=== PATIENT | female | born 1980 | race African-American/Black ===

== ENCOUNTER 2019-03-25 01:47 | Observation (INO) ==
[2019-03-25 04:15] LABS: Apearance,Urine CLEAR (Clear); Bacteria,Urine Occasional /HPF (Few); Bilirubin,Urine Negative (Negative); Blood, Urine Large mg/dL (Negative); Glucose,Urine (UA) Negative (Negative); Ketones,Urine 5 mg/dL (Negative); Mucus,Urine Many /LPF (Occasional); Nitrite,Urine Negative (Negative); Protein,Urine 30 MG/DL; RBC,Urine 107 /HPF (0-4); Squamous Epithelial Cell,Urine Occasional /HPF (0-10); Urine Color Yellow (Yellow); Urine Specific Gravity 1.027 (1.001-1.035); WBC,Urine <1 /HPF (0-6)
[2019-03-25] MEDS ORDERED: PIPERACILLIN/TAZOBACTAM 3,375 MG in SODIUM CHLORIDE 0.9% 100 ML IV STA (04:42)
[2019-03-25 05:36] LABS: Basophils # 0.1 10*3/uL (0.0-0.2); Basophils % 0.6 % (0.0-0.8); Eosinophils # 0.3 10*3/uL (0.0-0.87); Eosinophils % 2.6 % (0.00-10.9); Hematocrit 38.8 VOL% (35.7-47.0); Hemoglobin 12.7 GM/DL (12.0-16.0); Immature Granulocytes % 0.3 %; Immature Granulocytes Absolute 0.03 #; Lymphocytes # 4.3 10*3/uL (1.4-4.0); Lymphocytes % 41.7 % (21.3-54.2); Mean Corpuscular HGB Conc 32.7 GM/DL (32-36); Mean Corpuscular Volume 84.2 FL (87-102); Mean Platelet Volume 10.5 FL (9.6-12.0); Monocytes % 6.9 % (1.7-12.7); Neutrophils % 47.9 % (38.7-73.9); Platelet Count 284 T/CUMM (130-400); Red Blood Count 4.61 MC/CUMM (3.8-5.5); Red Cell Distribution Width 13.3 % (9.3-17.3); White Blood Count 10.4 T/CUMM (4-12)
[2019-03-25 05:54] LABS: Calcium 8.8 MG/DL (8.5-10.1); Osmolality,Calculated 275.4 MOS/KG (273-304)
[2019-03-25] MEDS ORDERED: ACETAMINOPHEN 325 MG TABLET PO PRN (05:59)
[2019-03-25] MEDS ORDERED: HYDROmorphone 2 MG/1 ML VIAL IV PRN (05:59)
[2019-03-25] MEDS ORDERED: ONDANSETRON 4 MG/2 ML VIAL IV PRN (05:59)
[2019-03-25] MEDS: SODIUM CHLORIDE 0.9% 1,000 ML IV SCH ×2 (07:25→20:51)
[2019-03-25] MEDS: ENOXAPARIN 40 MG/0.4 ML SYRINGE SUBCUT SCH (09:17)
[2019-03-25] MEDS ORDERED: BUPIVACAINE MPF 0.25% 30 ML VIAL ONE (10:22)
[2019-03-25] MEDS ORDERED: LIDOCAINE 1% 20 ML VIAL ONE (10:22)
[2019-03-25] MEDS ORDERED: fentaNYL 100 MCG/2 ML VIAL ONE (10:44)
[2019-03-25] MEDS ORDERED: DEXAMETHASONE 4 MG/1 ML VIAL ONE (10:44)
[2019-03-25] MEDS ORDERED: LIDOCAINE 2% 5 ML VIAL ONE (10:44)
[2019-03-25] MEDS ORDERED: ONDANSETRON 4 MG/2 ML VIAL ONE (10:44)
[2019-03-25] MEDS ORDERED: KETOROLAC 30 MG/1 ML VIAL ONE (10:44)
[2019-03-25] MEDS ORDERED: propofoL 200 MG/20 ML VIAL IV ONE (10:44)
[2019-03-25] MEDS ORDERED: MIDAZOLAM 2 MG/2 ML VIAL ONE (10:44)
[2019-03-25] MEDS: PIPERACILLIN/TAZOBACTAM 3,375 MG in SODIUM CHLORIDE 0.9% 100 ML IV SCH ×2 (12:59→20:52)
[2019-03-26] MEDS: PIPERACILLIN/TAZOBACTAM 3,375 MG in SODIUM CHLORIDE 0.9% 100 ML IV SCH ×2 (05:08→12:43)
[2019-03-26] MEDS: ENOXAPARIN 40 MG/0.4 ML SYRINGE SUBCUT SCH (08:01)
[2019-03-26] MEDS: SODIUM CHLORIDE 0.9% 1,000 ML IV SCH (09:00)
[2019-03-26 11:26] VITALS: BP 118/65
[2019-03-26] MEDS ORDERED: INFLUENZA VIRUS VACCINE 0.5 ML SYRINGE IM ONE (12:34)
== END 2019-03-26 13:41 | disposition home or self-care (01) ==
LOC: N.ED 01:47 → N.3E 01:47
PROVIDERS: ADMIT Surgery; ATTEND Surgery

== ENCOUNTER 2021-04-23 11:55 | Inpatient (IN) ==
[2021-04-23] MEDS ORDERED: SODIUM CHLORIDE 0.9% 1,000 ML IV STA (14:15)
[2021-04-23] MEDS ORDERED: PIPERACILLIN/TAZOBACTAM 3,375 MG in SODIUM CHLORIDE 0.9% 100 ML IV STA (14:15)
[2021-04-23] MEDS ORDERED: ONDANSETRON 4 MG/2 ML VIAL IV STA (14:15)
[2021-04-23] MEDS ORDERED: MORPHINE 4 MG/1 ML VIAL IV STA (14:25)
[2021-04-23 15:02] LABS: Basophils % 0.2 % (0.0-0.8); Eosinophils # 0.1 10*3/uL (0.0-0.87); Eosinophils % 0.6 % (0.00-10.9); Hematocrit 39.1 VOL% (35.7-47.0); Hemoglobin 12.8 GM/DL (12.0-16.0); Immature Granulocytes % 0.6 %; Immature Granulocytes Absolute 0.09 #; Lymphocytes # 3.9 10*3/uL (1.4-4.0); Mean Corpuscular HGB Conc 32.7 GM/DL (32-36); Mean Corpuscular Volume 83.9 FL (87-102); Mean Platelet Volume 9.9 FL (9.6-12.0); Monocytes % 6.5 % (1.7-12.7); Neutrophils % 68.1 % (38.7-73.9); Platelet Count 309 T/CUMM (130-400); Red Blood Count 4.66 MC/CUMM (3.8-5.5); Red Cell Distribution Width 12.9 % (9.3-17.3); White Blood Count 16.3 T/CUMM (4-12)
[2021-04-23 15:19] LABS: Calcium 9.2 MG/DL (8.5-10.1); Osmolality,Calculated 266.1 MOS/KG (273-304)
[2021-04-23] MEDS ORDERED: MORPHINE 4 MG/1 ML VIAL IV PRN (17:34)
[2021-04-23] MEDS ORDERED: ACETAMINOPHEN 325 MG TABLET PO PRN (17:34)
[2021-04-23] MEDS ORDERED: ONDANSETRON 4 MG/2 ML VIAL IV PRN (17:34)
[2021-04-23] MEDS: LACTATED RINGERS 1,000 ML IV SCH (18:15)
[2021-04-23] MEDS ORDERED: INFLUENZA VIRUS VACCINE 0.5 ML SYRINGE IM ONE (18:18)
[2021-04-23 20:56] LABS: Mucus,Urine Occasional /LPF (Occasional); RBC,Urine 13 /HPF (0-4); Squamous Epithelial Cell,Urine Occasional /HPF (0-10)
[2021-04-23 20:57] LABS: Bilirubin,Urine Negative (Negative); Blood, Urine Small mg/dL (Negative); Glucose,Urine (UA) Negative (Negative); Ketones,Urine Negative (Negative); Nitrite,Urine Negative (Negative); Protein,Urine Negative; Urine Appearance Slightly Hazy (Clear); Urine Color Straw (Yellow); Urine Urobilinogen 0.2 EU/DL (<2.0); Urine pH 8.5 (4.5-8.0)
[2021-04-23] MEDS ORDERED: KETOROLAC 30 MG/1 ML VIAL IV ONE (21:26)
[2021-04-23] MEDS: PIPERACILLIN/TAZOBACTAM 3,375 MG in SODIUM CHLORIDE 0.9% 100 ML IV SCH (21:55)
[2021-04-24] MEDS: LACTATED RINGERS 1,000 ML IV SCH ×4 (02:16→20:34)
[2021-04-24] MEDS: HYDROmorphone 2 MG/1 ML VIAL IV PRN ×4 (02:18→22:05)
[2021-04-24] MEDS ORDERED: KETOROLAC 15 MG/1 ML VIAL IV SCH (04:00)
[2021-04-24] MEDS ORDERED: LIDOCAINE 1%/EPI INJ 20 ML VIAL ONE (06:26)
[2021-04-24] MEDS ORDERED: BUPIVACAINE 0.5% 50 ML VIAL ONE (06:26)
[2021-04-24] MEDS: PIPERACILLIN/TAZOBACTAM 3,375 MG in SODIUM CHLORIDE 0.9% 100 ML IV SCH ×4 (06:29→22:05)
[2021-04-24] MEDS ORDERED: LIDOCAINE 2% 5 ML VIAL ONE (06:38)
[2021-04-24] MEDS ORDERED: MIDAZOLAM 2 MG/2 ML VIAL ONE (06:38)
[2021-04-24] MEDS ORDERED: SODIUM CHLORIDE 0.9% 100 ML IV ONE (06:38)
[2021-04-24] MEDS ORDERED: fentaNYL 100 MCG/2 ML VIAL ONE (06:38)
[2021-04-24] MEDS ORDERED: ETOMIDATE 40 MG/20 ML VIAL IV ONE (06:38)
[2021-04-24] MEDS ORDERED: propofoL 200 MG/20 ML VIAL IV ONE (06:38)
[2021-04-24] MEDS ORDERED: LACTATED RINGERS 1,000 ML IV SCH (07:00)
[2021-04-24] MEDS ORDERED: KETOROLAC 30 MG/1 ML VIAL ONE (07:15)
[2021-04-24] MEDS: PANTOPRAZOLE 40 MG TABLET PO SCH (10:16)
[2021-04-24] MEDS: KETOROLAC 15 MG/1 ML VIAL IV PRN (20:30)
[2021-04-25] MEDS: LACTATED RINGERS 1,000 ML IV SCH ×2 (04:10→16:35)
[2021-04-25] MEDS: PIPERACILLIN/TAZOBACTAM 3,375 MG in SODIUM CHLORIDE 0.9% 100 ML IV SCH ×3 (05:30→21:19)
[2021-04-25] MEDS: HYDROmorphone 2 MG/1 ML VIAL IV PRN ×4 (05:34→17:51)
[2021-04-25] MEDS: PANTOPRAZOLE 40 MG TABLET PO SCH (08:54)
[2021-04-25] MEDS ORDERED: HYDROmorphone 2 MG/1 ML VIAL IV PRN (10:27)
[2021-04-25] MEDS ORDERED: HYDROmorphone 2 MG/1 ML VIAL IV ONE (10:30)
[2021-04-25] MEDS ORDERED: INFLUENZA VIRUS VACCINE 0.5 ML SYRINGE IM ONE (11:19)
[2021-04-25] MEDS: VANCOMYCIN INJ 1,250 MG in SODIUM CHLORIDE 0.9% 250 ML IV SCH (12:39)
[2021-04-25] MEDS: SODIUM HYPOCHLORITE 0.25% IRRIG 473 ML BOTTLE TOP SCH (12:39)
[2021-04-25] MEDS: KETOROLAC 15 MG/1 ML VIAL IV PRN ×2 (12:39→21:30)
[2021-04-25] MEDS: AMITRIPTYLINE 50 MG TABLET PO SCH (21:21)
[2021-04-25] MEDS: CYCLOBENZAPRINE 10 MG TABLET PO PRN (21:38)
[2021-04-26] MEDS: VANCOMYCIN INJ 1,250 MG in SODIUM CHLORIDE 0.9% 250 ML IV SCH ×2 (02:00→13:18)
[2021-04-26] MEDS ORDERED: HYDROmorphone 1 MG/1 ML SYRINGE IV PRN (02:14)
[2021-04-26] MEDS: HYDROmorphone 1 MG/1 ML SYRINGE IV PRN ×7 (02:19→23:40)
[2021-04-26] MEDS: PIPERACILLIN/TAZOBACTAM 3,375 MG in SODIUM CHLORIDE 0.9% 100 ML IV SCH ×3 (05:01→21:23)
[2021-04-26] MEDS: PANTOPRAZOLE 40 MG TABLET PO SCH (08:41)
[2021-04-26] MEDS: SODIUM HYPOCHLORITE 0.25% IRRIG 473 ML BOTTLE TOP SCH (08:41)
[2021-04-26] MEDS: AMITRIPTYLINE 50 MG TABLET PO SCH (21:23)
[2021-04-26] MEDS: CYCLOBENZAPRINE 10 MG TABLET PO PRN (21:23)
[2021-04-27] MEDS: VANCOMYCIN INJ 1,250 MG in SODIUM CHLORIDE 0.9% 250 ML IV SCH (01:57)
[2021-04-27] MEDS: HYDROmorphone 1 MG/1 ML SYRINGE IV PRN ×3 (03:19→08:28)
[2021-04-27] MEDS: PIPERACILLIN/TAZOBACTAM 3,375 MG in SODIUM CHLORIDE 0.9% 100 ML IV SCH (05:15)
[2021-04-27 07:39] VITALS: BP 130/75
[2021-04-27] MEDS: PANTOPRAZOLE 40 MG TABLET PO SCH (08:28)
== END 2021-04-27 10:49 | disposition home or self-care (01) | DRG 603 ==
LOC: N.3E 11:55 → N.ED 11:55 → N.3E 19:52
PROVIDERS: ADMIT Surgery; ATTEND Surgery